=== PATIENT | male | born 1985 | race African-American/Black ===

== ENCOUNTER 2019-08-30 21:32 | Emergency (ER) | payer OTHER ==
[2019-08-30] MEDS ORDERED: NA CHLORIDE 0.9% 1,000 ML ONE (22:32)
[2019-08-30 22:42] LABS: Absolute Lymphocytes (CBC) 1.3 K/uL (0.7-4.9); Basophils % 0.5 % (0-1.3); Hematocrit 41.8 % (39.6-49.0); Lymphocytes % 21.7 % (15.3-44.8); MPV 7.9 fL (7.6-11.3); RBC Red Blood Cell Count 4.87 M/uL (4.33-5.43)
[2019-08-30 22:51] LABS: BUN Blood Urea Nitrogen 7 mg/dL (7-18); Bicarbonate 28 mmol/L (21-32); Glucose Level 84 mg/dL (74-106); Potassium 3.5 mmol/L (3.5-5.1); Sodium Level 136 mmol/L (136-145)
--- NOTE | 2019-08-30 23:44 | ER ---
Nurse's Notes [facility] Name: Kashmir Richter Age: 34 yrs Sex: Male : 1985 Arrival Date: 08/30/2019 Time: 21:35 Bed 6 Private MD: Diagnosis: Fever. Viral syndrome Presentation: 08/29 21:43 Chief complaint: Patient states: I think I have a fever. I feel hot. (denies cough, ch congestion, nausea, pain, sore throat, travel, states he is working inside the [employer] but has not traveled.) no other symptoms. took 600mg motrin at 1800. Coronavirus screen: Patient denies fever greater than 100.4F, cough, shortness of breath, or difficulty breathing. Proceed with normal triage process. Ebola Screen: Patient negative for fever greater than or equal to 101.5 degrees Fahrenheit, and additional compatible Ebola Virus Disease symptoms Patient denies exposure to infectious person. Patient denies travel to an Ebola-affected area in the 21 days before illness onset. No symptoms or risks identified at this time. Initial Sepsis Screen: Does the patient meet any 2 criteria? No. Patient's initial sepsis screen is negative. Does the patient have a suspected source of infection? No. Patient's initial sepsis screen is negative. Risk Assessment: Do you want to hurt yourself or someone else? Patient reports no desire to harm self or others. 21:43 Method Of Arrival: Ambulatory 21:43 Acuity: CONSUELO 5 21:45 Onset of symptoms was August 30, 2019. [facility] Triage Assessment: 21:46 General: Appears in no apparent distress. comfortable. Historical: - Allergies: 21:46 No Known Allergies; - Home Meds: 21:46 Xyzal oral oral [Active]; - PMHx: 21:46 "allergies"; - PSHx: 21:46 keloids removed on ears; - Immunization history:: Adult Immunizations up to date. - Social history:: Smoking status: Patient denies any tobacco usage or history of. Patient uses alcohol, occasionally. Patient/guardian denies using street drugs, Smoking status: . Screenin:45 Abuse screen: Denies threats or abuse. Nutritional screening: No deficits noted. jd3 Tuberculosis screening: No symptoms or risk factors identified. Fall Risk Ambulatory Aid- None/Bed Rest/Nurse Assist (0 pts). Gait- Normal/Bed Rest/Wheelchair (0 pts) Mental Status- Oriented to own ability (0 pts). Total James Fall Scale indicates No Risk (0-24 pts). Assessment: 21:43 General: Appears in no apparent distress. comfortable, Behavior is calm, cooperative, jd3 appropriate for age, Reports "feeling warm". Pain: Denies pain. Neuro: Level of Consciousness is awake, alert, obeys commands, Oriented to person, place, time, situation. Cardiovascular: Denies chest pain, Capillary refill < 3 seconds Patient's skin is warm and dry. Respiratory: Airway is patent Respiratory effort is even, unlabored, Respiratory pattern is regular, symmetrical, Breath sounds are clear bilaterally. Denies cough, shortness of breath. GI: No signs and/or symptoms were reported involving the gastrointestinal system. Patient currently denies abdominal pain, constipation, diarrhea, nausea, vomiting. : No signs and/or symptoms were reported regarding the genitourinary system. Denies burning with urination. EENT: No signs and/or symptoms were reported regarding the EENT system. Derm: Skin is intact, Skin is dry, Skin is normal, Skin temperature is warm. Musculoskeletal: Circulation, motion, and sensation intact. Range of motion: intact in all extremities. 22:30 Reassessment: Patient appears in no apparent distress at this time. No changes from jd3 previously documented assessment. Patient and/or family updated on plan of care and expected duration. Pain level reassessed. Patient is alert, oriented x 3, equal unlabored respirations, skin warm/dry/pink. 23:26 Reassessment: Patient appears in no apparent distress at this time. Patient and/or jd3 family updated on plan of care and expected duration. Pain level reassessed. Patient is alert, oriented x 3, equal unlabored respirations, skin warm/dry/pink. awaiting disposition. Patient denies pain at this time. 23:59 Reassessment: Patient appears in no apparent distress at this time. Patient and/or jd3 family updated on plan of care and expected duration. Pain level reassessed. Patient is alert, oriented x 3, equal unlabored respirations, skin warm/dry/pink. pt reporting understanding of discharge instructions. even and steady gait upon discharge. Patient denies pain at this time. Vital Signs: 21:43 BP 162 / 82; Pulse 88; Resp 14; Temp 99.4(O); Pulse Ox 99% on R/A; Weight 88.45 kg; ch Height 5 ft. 10 in. (177.80 cm); Pain 0/10; 23:27 Pulse 85; Resp 16 S; Pulse Ox 100% on R/A; Pain 0/10; jd3 08/30 00:00 BP 142 / 83; Pulse 86; Resp 15 S; Temp 98.3(O); Pulse Ox 100% on R/A; Pain 0/10; jd3 08/29 21:43 Body Mass Index 27.98 (88.45 kg, 177.80 cm) ED Course: 08/29 21:35 Patient arrived in ED. cf2 21:43 Shameka Mock, RN is Primary Nurse. ch 21:43 Primary Nurse role handed off by Shameka Mock, RN jd3 21:43 Deacon Camacho, RN is Primary Nurse. jd3 21:43 Ramy Castro MD is Attending Physician. pkl 21:44 Arm band placed on. jd3 21:45 Triage completed. ch 21:45 Patient has correct armband on for positive identification. Bed in low position. Call jd3 light in reach. Side rails up X 1. Pulse ox on. NIBP on. 22:29 Call light in reach. Door closed. Lights dimmed. Verbal reassurance given. lt1 22:29 Initial lab(s) drawn, by me, sent to lab. Flu and/or RSV swab sent to lab. Strep swab lt1 sent to lab. Inserted saline lock: 20 gauge in right antecubital area, using aseptic technique. 22:29 Strep Sent. lt1 22:29 Flu Sent. lt1 22:29 Chem 7 Sent. lt1 22:29 CBC with Diff Sent. lt1 23:58 No provider procedures requiring assistance completed. IV discontinued, intact, jd3 bleeding controlled, No redness/swelling at site. Pressure dressing applied. Administered Medications: 22:30 Drug: NS 0.9% 1000 ml Route: IV; Rate: 1000 ml; Site: right antecubital; jd3 23:30 Follow up: Response: No adverse reaction; IV Status: Completed infusion; IV Intake: jd3 1000ml Intake: 23:30 IV: 1000ml; Total: 1000ml. jd3 Outcome: 23:44 Discharge ordered by . rafael 23:58 Discharged to home ambulatory. jd3 23:58 Condition: stable 23:58 Discharge instructions given to patient, Instructed on discharge instructions, follow up and referral plans. Demonstrated understanding of instructions, follow-up care. 08/30 00:04 Patient left the ED. jd3 Signatures: Shameka Mock RN Ramy Florentino ch, MD MD pkl Davies, Jonathon, RN RN jd3 Tran, Leah [facility] Xochitl Denney 2 Corrections: (The following items were deleted from the chart) 08/29 23:58 23:58 Response: No adverse reaction; IV Status: Completed infusion; IV Intake: 1000ml jd3 jd3
--- NOTE | 2019-08-30 23:45 | EDPHYS ---
Physician Documentation [facility] Name: Kashmir Richter Age: 34 yrs Sex: Male : 1985 Arrival Date: 08/30/2019 Time: 21:35 Bed 6 Private MD: ED Physician Ramy Castro HPI: 08/29 22:12 This 34 yrs old Black Male presents to ER via Ambulatory with complaints of Fever. pkl 22:12 The patient reports fever, with an emergency department temperature of 99.4 degrees pkl Fahrenheit. Onset: The symptoms/episode began/occurred today. Associated signs and symptoms: Pertinent negatives: None. Historical: - Allergies: 21:46 No Known Allergies; ch - Home Meds: 21:46 Xyzal oral oral [Active]; ch - PMHx: 21:46 "allergies"; ch - PSHx: 21:46 keloids removed on ears; ch - Immunization history:: Adult Immunizations up to date. - Social history:: Smoking status: Patient denies any tobacco usage or history of. Patient uses alcohol, occasionally. Patient/guardian denies using street drugs, Smoking status: . ROS: 22:12 Eyes: Negative for injury, pain, redness, and discharge, ENT: Negative for injury, pkl pain, and discharge, Neck: Negative for injury, pain, and swelling, Cardiovascular: Negative for chest pain, palpitations, and edema, Respiratory: Negative for shortness of breath, cough, wheezing, and pleuritic chest pain, Abdomen/GI: Negative for abdominal pain, nausea, vomiting, diarrhea, and constipation, Back: Negative for injury and pain, : Negative for injury, bleeding, discharge, and swelling, MS/Extremity: Negative for injury and deformity, Skin: Negative for injury, rash, and discoloration, Neuro: Negative for headache, weakness, numbness, tingling, and seizure. Exam: 22:12 Head/Face: Normocephalic, atraumatic. Eyes: Pupils equal round and reactive to light, pkl extra-ocular motions intact. Lids and lashes normal. Conjunctiva and sclera are non-icteric and not injected. Cornea within normal limits. Periorbital areas with no swelling, redness, or edema. ENT: Nares patent. No nasal discharge, no septal abnormalities noted. Tympanic membranes are normal and external auditory canals are clear. Oropharynx with no redness, swelling, or masses, exudates, or evidence of obstruction, uvula midline. Mucous membranes moist. Neck: Trachea midline, no thyromegaly or masses palpated, and no cervical lymphadenopathy. Supple, full range of motion without nuchal rigidity, or vertebral point tenderness. No Meningismus. Chest/axilla: Normal chest wall appearance and motion. Nontender with no deformity. No lesions are appreciated. Cardiovascular: Regular rate and rhythm with a normal S1 and S2. No gallops, murmurs, or rubs. Normal PMI, no JVD. No pulse deficits. Respiratory: Lungs have equal breath sounds bilaterally, clear to auscultation and percussion. No rales, rhonchi or wheezes noted. No increased work of breathing, no retractions or nasal flaring. Abdomen/GI: Soft, non-tender, with normal bowel sounds. No distension or tympany. No guarding or rebound. No evidence of tenderness throughout. Back: No spinal tenderness. No costovertebral tenderness. Full range of motion. Skin: Warm, dry with normal turgor. Normal color with no rashes, no lesions, and no evidence of cellulitis. MS/ Extremity: Pulses equal, no cyanosis. Neurovascular intact. Full, normal range of motion. Neuro: Awake and alert, GCS 15, oriented to person, place, time, and situation. Cranial nerves II-XII grossly intact. Motor strength 5/5 in all extremities. Sensory grossly intact. Cerebellar exam normal. Normal gait. Vital Signs: 21:43 BP 162 / 82; Pulse 88; Resp 14; Temp 99.4(O); Pulse Ox 99% on R/A; Weight 88.45 kg; ch Height 5 ft. 10 in. (177.80 cm); Pain 0/10; 23:27 Pulse 85; Resp 16 S; Pulse Ox 100% on R/A; Pain 0/10; jd3 08/30 00:00 BP 142 / 83; Pulse 86; Resp 15 S; Temp 98.3(O); Pulse Ox 100% on R/A; Pain 0/10; jd3 08/29 21:43 Body Mass Index 27.98 (88.45 kg, 177.80 cm) [facility]: 08/29 21:44 Patient medically screened. pkl 23:42 Data reviewed: vital signs, nurses notes, lab test result(s). ED course: Discussed lab. pkl results with patient. Advised to follow up PCP if needed. 08/29 22:12 Order name: CBC with Diff; Complete Time: 22:59 pkl 08/29 22:12 Order name: Chem 7; Complete Time: 22:59 pkl 08/29 22:12 Order name: Flu; Complete Time: 23:41 pkl 08/29 22:12 Order name: Strep; Complete Time: 22:59 pkl 08/29 22:44 Order name: Throat Culture EDMS Administered Medications: 22:30 Drug: NS 0.9% 1000 ml Route: IV; Rate: 1000 ml; Site: right antecubital; jd3 23:30 Follow up: Response: No adverse reaction; IV Status: Completed infusion; IV Intake: jd3 1000ml Disposition: 08/30/19 23:44 Discharged to Home. Impression: Fever. Viral syndrome. - Condition is Stable. - Medication Reconciliation Form, Thank You Letter, Antibiotic Education, Prescription Opioid Use, Work release form form. - Follow up: Private Physician; When: 2 - 3 days; Reason: Re-evaluation by your physician. - Problem is new. - Symptoms have improved. Signatures: Dispatcher [employer] EDShameka Hinton RN RN ch Lam, Pin, MD MD pkl Davies, Jonathon, RN RN jd3 Corrections: (The following items were deleted from the chart) 08/30 00:04 08/29 23:44 08/30/2019 23:44 Discharged to Home. Impression: Fever. Viral syndrome. jd3 Condition is Stable. Forms are Medication Reconciliation Form, Thank You Letter, Antibiotic Education, Prescription Opioid Use. Follow up: Private Physician; When: 2 - 3 days; Reason: Re-evaluation by your physician. Problem is new. Symptoms have improved. pkl
[2019-08-31 00:57] VITALS: O2SAT 100
[2019-08-31 00:58] VITALS: BP 142/83; TEMP 98.3
== END 2019-08-31 00:04 | disposition home or self-care (01) ==
LOC: ER 21:32
DX: B34.9 Viral infection, unspecified (principal)
CPT/HCPCS: 87070; 85025; 80048; 36415; 87081; 87804 ×2; 96360; 99284; J7030